=== PATIENT | male | born 1985 | race Caucasian/White ===

== ENCOUNTER 2017-03-08 01:55 | Emergency (ER) | payer SELFPAY ==
[~2017-03-08] VITALS: Ht 182.9 cm; Wt 93.0 kg
[2017-03-08 02:07] VITALS: PULSE 80; RESP 20; TEMP 97.6; O2SAT 96
[2017-03-08] MEDS ORDERED: predniSONE 20 MG TAB PO ONE (02:15)
[2017-03-08] MEDS: RESP: ALBUTEROL 2.5 MG/IPRATROPIUM 0.5 MG NEB (SCH) INH ×2 (02:18→02:19)
[2017-03-08] MEDS ORDERED: PRED50 PO (02:39)
[2017-03-08] MEDS ORDERED: ALBU0.08 NEB (02:45)
--- NOTE | 2017-03-08 02:55 | PD ---
HPI Chief Complaint: Respiratory Symptoms Time Seen by Provider: 02:13 Travel History International Travel<30 days: No Contact w/Intl Traveler<30days: No Traveled to known affect area: No History of Present Illness HPI The patient is a 31-year-old male with a history of asthma who yesterday started having another attack of asthma. He does not smoke. He denies any fever or chest pain. He does have a nebulizer machine at home but has no albuterol refills for it. His last asthma attack was 6 months ago. PFSH Past Medical History Asthma: Yes Diminished Hearing: No Respiratory: Yes (asthma) Tetanus Vaccination: Unknown Influenza Vaccination: No Social History Alcohol Use: Yes ("OCCASIONALLY") Tobacco Use: No Substance Use: No Allergies-Medications (Allergen,Severity, Reaction): Coded Allergies: Aspirin (Verified Allergy, Severe, Wheezing, 03/08/17) Penicillin (Verified Allergy, Unknown, family history , 10/15/13) Reported Meds & Prescriptions Reported Meds & Active Scripts Active Albuterol Neb (Albuterol Sulfate) 2.5 Mg/3 Ml Neb 2.5 Mg NEB Q4HR NEB While awake Prednisone 50 Mg Tab 50 Mg PO BID Review of Systems Except as stated in HPI: all other systems reviewed are Neg Physical Exam Narrative GENERAL: The patient is alert, oriented 3 and slight respiratory distress with his asthma. His vital signs are normal. Oximetry is 96% and respirations are 20. SKIN: Focused skin assessment warm/dry. No skin rash is seen. HEAD: Atraumatic. Normocephalic. EYES: Pupils equal and round. No scleral icterus. No injection or drainage. ENT: No nasal bleeding or discharge. Mucous membranes pink and moist. NECK: Trachea midline. No JVD. CARDIOVASCULAR: Regular rate and rhythm. No murmur appreciated. RESPIRATORY: No accessory muscle use. Scattered wheezes are heard in all lung martinez. Breath sounds equal bilaterally. There are no retractions. GASTROINTESTINAL: Abdomen soft, non-tender, nondistended. Hepatic and splenic margins not palpable. MUSCULOSKELETAL: No obvious deformities. No clubbing. No cyanosis. No edema. NEUROLOGICAL: Awake and alert. No obvious cranial nerve deficits. Motor grossly within normal limits. Normal speech. PSYCHIATRIC: Appropriate mood and affect; insight and judgment normal. Data Data Last Documented VS Vital Signs Date Time Temp Pulse Resp B/P Pulse Ox O2 Delivery O2 Flow Rate FiO2 5/10/17 02:15 95 Room Air 03/08/17 02:07 97.6 80 20 Orders Albuterol-Ipratropium Neb (Duoneb Neb) (03/08/17 02:15) Prednisone (Deltasone) (03/08/17 02:15) MDM Medical Decision Making Medical Screen Exam Complete: Yes Emergency Medical Condition: Yes Medical Record Reviewed: Yes Differential Diagnosis Acute asthma, bronchitis, pneumonia Narrative Course It is now 0250 and the patient's lungs are clear after the patient has had 3 DuoNeb treatments. With the lungs now being totally clear, pneumonia/ bronchitis are very unlikely Impression: Acute asthma Plan: The patient is given an 80 stepwise tapered course of prednisone as well as a refill of albuterol nebulizer. Diagnosis Primary Impression: Acute asthma Additional Instructions: I wrote for 60 nebulizer treatments. You do not have to buy all these at this time, you can leave many in reserve should he run out of them in the future. High fevers and chest pain are suggestive of a possible pneumonia and you may need to return for reevaluation. Otherwise, follow up with your primary care physician next week. The prednisone is taken one tablet twice daily for 4 days followed by one tablet once daily for 4 days. Med/Other Pt SpecificInfo: Prescription(s) given Scripts Albuterol Neb 2.5 Mg/3 Ml Neb2.5 Mg NEB Q4HR NEB #60 NEBULE Ref 0 While awake Prov:Cuong Ambrose MD 03/08/17 Prednisone 50 Mg Tab50 Mg PO BID #12 TAB Ref 0 Prov:Cuong Ambrose MD 03/08/17 Disposition: 01 DISCHARGE HOME Condition: Stable Cuong Ambrose MD March 08, 2017 02:54
[2017-03-08 02:58] VITALS: BP 149/60; TEMP 98
== END 2017-03-08 03:04 | disposition home or self-care (01) ==
LOC: PHED 01:55
DX: J45.901 Unspecified asthma with (acute) exacerbation (principal); Z88.6 Allergy status to analgesic agent; Z88.0 Allergy status to penicillin; Z79.51 Long term (current) use of inhaled steroids
CPT/HCPCS: 94640; 94664; 99283; J7512